=== PATIENT | male | born 1995 | race Caucasian/White ===

== ENCOUNTER → 2025-02-16 | Outpatient (BNVA) | payer BC, SELFPAY | END | disposition home or self-care (01) | PROVIDERS: PCP Family Medicine; Referring Provider Family Medicine; Visit Provider Urology | DX: Z30.2 Encounter for sterilization (principal); E66.9 Obesity, unspecified; Z68.35 Body mass index [BMI] 35.0-35.9, adult | CPT/HCPCS: 81003; 99202; G0463 ==

== ENCOUNTER 2025-04-05 07:30 | Day surgery (SDC) | payer BC, SELFPAY ==
[2025-04-04 12:15] VITALS: BMI 35.2
--- NOTE | 2025-04-04 12:27 | SUR.PREOP ---
Health history taken via phone, instructions given to keep NPO after MN. Pt instructed to trim pubic hair.
[2025-04-05 07:19] VITALS: BP 144/73; PULSE 62; RESP 10; TEMP 36.6; O2SAT 97; BMI 36.6
[2025-04-05] MEDS: RINGERS LACTATED 1000 ML 1,000 ML 20 ML IV (07:30)
[2025-04-05 09:36] VITALS: BP 128/55; PULSE 64; RESP 18; TEMP 36.2; O2SAT 96
--- NOTE | 2025-04-05 09:36 | SUR.PHASEII ---
pt received from OR in recovery bay 3. pt awake and alert, breathing unlabored on room air. v/s stable. pt dressing to scrotal area cdi. report received from Dr. Bowden and Yousif Renee.
[2025-04-05 09:40] VITALS: BP 133/80; PULSE 61; RESP 15; TEMP 36.2; O2SAT 96
[2025-04-05 09:45] VITALS: BP 109/67; PULSE 59; RESP 16; TEMP 36.2; O2SAT 96
[2025-04-05 09:50] VITALS: BP 131/60; PULSE 68; RESP 13; TEMP 36.2; O2SAT 97
--- NOTE | 2025-04-05 09:51 | SUR.PHASEII ---
pt able to tolerate oral fluids without difficulty swallowing or nausea/vomiting.
--- NOTE | 2025-04-05 09:51 | PD.SUROPNT ---
Date of Procedure 04/05/25 Pre Op Diagnosis Elective sterilization Post Op Diagnosis Same Procedure Bilateral vasectomy Findings Bilateral vas no pathology Procedure Description Indication for procedure this is 30-year-old gentleman he is with children desired bilateral vasectomy procedure and complications were discussed with the patient in great detail informed consent is obtained he understood very well there is no warranty for permanent sterilization literature regarding bilateral vasectomy was provided to the patient Procedure patient was brought to the operating room in a satisfactory condition after appropriate premedication was put on the operating table in a supine position he was appropriately identified by surgeon and operating room staff site scope and indications of the procedure were reconfirmed with the patient MAC anesthesia was given uneventfully, parts were prepped and draped in a usual sterile fashion. Next the right vas deferens was palpated between 2 fingers and a thumb 2% lidocaine with quarter percent Marcaine was instilled appropriately vertical skin incision was made proper hemostasis was secured. Next the vas deferens was brought into the incision it was from its various fascial coverings between 2 silver clips centimeter of the vas deferens was excised. The lumen of the vas deferens was diathermized with coagulation diathermy distal end of the vas deferens was buried between various fascial layers. Skin was approximated with 3-0 chromic. Similar procedure was repeated on the opposite side. Next this sterile dressings were applied. Pressure bandage was given Patient having tolerated the procedure well and was sent to recovery room in a satisfactory condition to be discharged home with full postoperative instructions were verbally as well as in writing to be followed in urology office in 12 weeks' time. Anesthesia MAC Pathology / specimen None Estimated Blood Loss 0.5 Condition Stable Disposition PACU Surgeon Chacho Woodard MD Surgical Staff Operation Date: 04/05/25 08:45 Case Staff Anesthesiologist: Enzo Bowden
[2025-04-05 10:05] VITALS: BP 122/63; PULSE 60; RESP 18; TEMP 36.1; O2SAT 98
--- NOTE | 2025-04-05 10:15 | SUR.PHASEII ---
pt awake and alert, breathing unlabored on room air. v/s stable. pt dressing to scrotal area cdi. pt able to ambulate to wheelchair with steady gait. d/c instructions given with Talib in room, all questions answered. pt d/c via wheelchair with all belongings.
== END 2025-04-05 10:15 | disposition home or self-care (01) ==
PROVIDERS: PCP Family Medicine; Referring Provider Urology; Visit Provider Urology
PROC: (CPT 55250; principal; 2025-04-05 08:30)
DX: Z30.2 Encounter for sterilization (principal); E66.9 Obesity, unspecified; Z68.36 Body mass index [BMI] 36.0-36.9, adult
CPT/HCPCS: 55250; A4217; A4649; J2250; J2704; J3010; J3490; J7120; A9270

== ENCOUNTER → 2025-06-20 | Outpatient (BNVA) | payer BC, SELFPAY | END | disposition home or self-care (01) | PROVIDERS: PCP Family Medicine; Referring Provider Family Medicine; Visit Provider Physician Assistant | DX: Z98.52 Vasectomy status (principal) | CPT/HCPCS: 99212; Q3014; G0463 ==

== ENCOUNTER → 2025-06-21 | Outpatient (CLI) | payer BC, SELFPAY ==
[2025-06-21 07:59] LABS: Post Vasectomy Sperm Presence No Spermatozoa Seen (No Sperm)
== END | disposition home or self-care (01) ==
LOC: SLDO 07:36
PROVIDERS: Referring Provider Physician Assistant; Visit Provider Physician Assistant
DX: Z98.52 Vasectomy status (principal)
CPT/HCPCS: 89321